=== PATIENT | female | born 1935 | race Asian ===

== ENCOUNTER 2023-07-26 23:37 | Inpatient (IN) | payer MEDICARE, MEDICAID ==
[2023-07-27 00:22] LABS: #Eosinphils 0.1 thou/uL (0.0-0.7); #Monocytes 0.7 thou/uL (0.11-0.59); #Neutrophils 4.2 thou/uL (1.40-6.50); %Basophils 0.5 % (0.0-1.0); %Eosinophils 1.1 % (0.0-10.0); %Monocytes 10.7 % (0.0-10.0); %Neutrophils 64.6 % (42.0-75.0); Hemoglobin 12.8 g/dL (12.0-16.0); Mean Corpuscular HGB CONC 33.7 g/dL (32.0-36.0); Mean Corpuscular Hemoglobin 32.9 pg (27.0-31.0); Mean Corpuscular Volume 97.7 fl (78.0-98.0); Mean Platelet Volume 9.3 fL (7.4-10.4); Platelet Count 207 10x3/uL (130-400); RBC Distribution Width 13.9 % (11.5-14.5); Red Blood Cell (RBC) Count 3.89 mill/uL (4.20-5.40); White Blood Cell (WBC) Count 6.4 10x3/uL (4.8-10.8)
[2023-07-27 00:54] LABS: Troponin I Less than 0.010 ng/mL (< 0.028)
[2023-07-27 01:31] LABS: ALT (SGPT) 20 U/L (8-55); AST (SGOT) 25 U/L (5-34); Albumin 4.1 g/dL (3.4-4.8); Alkaline Phosphatase 42 U/L (40-110); Anion Gap 15 mmol/L (10-20); BUN (Urea Nitrogen) 52 mg/dL (9.8-20.1); Bilirubin, Total 0.3 mg/dL (0.2-1.2); Calc. Creatinine Clearance 0 mL/min (70-130); Calcium 9.2 mg/dL (7.8-10.44); Carbon Dioxide 23 mmol/L (23-31); Chloride 98 mmol/L (98-107); Estimated GFR 64; Globulin 3.5 g/dL (2.4-3.5); Glucose 261 mg/dL (83-110); Potassium 5.2 mmol/L (3.5-5.1); Protein, Total 7.6 g/dL (5.8-8.1); Sodium 131 mmol/L (136-145)
[2023-07-27 01:54] LABS: Bacteria/HPF None Seen HPF (None Seen); Bilirubin Negative (Negative); Blood, Urine Negative (Negative); CAUTI Indications for Culture Dysuria,urgency,freq; Clarity Clear (Clear); Glucose, Urine (Dipstick) 300 mg/dL (Negative); Ketone, Urine Negative (Negative); Leukocyte 25 Leu/uL (Negative); Nitrite Negative (Negative); Protein, Urine (Dipstick) Negative (Neg-Trace); RBC/HPF None Seen HPF (0-3); Specific Gravity, Urine 1.011 (1.002-1.036); Squamous Epithelial None Seen HPF (0-3); Urobilinogen Normal mg/dL (Less than 2); WBC/HPF 0-3 HPF (0-3); pH, Urine 6.5 (5.0-9.0)
[2023-07-27 02:01] LABS: Urine Culture Reflex No No
[2023-07-27] MEDS ORDERED: fentaNYL 50 mcg/mL 1 mL Vial ONE (02:24)
[2023-07-27] MEDS ORDERED: Insulin Regular 300 UNITS/3 ML VIAL ONE (02:25)
[2023-07-27 02:43] LABS: Magnesium 1.8 mg/dL (1.6-2.6)
[2023-07-27 04:26] VITALS: BMI 17.6
[2023-07-27] MEDS ORDERED: Dextrose 5% in Water 1,000 ML IV PRN (09:19)
[2023-07-27] MEDS ORDERED: HumaLOG 300 UNITS/3 ML VIAL SC PRN (09:19)
[2023-07-27] MEDS ORDERED: Glucagon 1 MG/ML KIT IM PRN (09:19)
[2023-07-27] MEDS ORDERED: Dextrose 50% Abboject 50 ML SYRINGE SLOW IVP PRN (09:19)
[2023-07-27] MEDS ORDERED: Losartan 25 MG TAB PO SCH (09:30)
[2023-07-27] MEDS ORDERED: Losartan 25 MG TAB ONE (10:05)
[2023-07-27] MEDS: oxyCODONE 5 MG TAB PO PRN (10:10)
[2023-07-27] MEDS ORDERED: Iopamidol-370 76% 500 ML MDV (1 ML CHARGE) ONE (10:25)
[2023-07-27] MEDS ORDERED: HumaLOG 300 UNITS/3 ML VIAL ONE (12:02)
[2023-07-27] MEDS: HumaLOG 300 UNITS/3 ML VIAL SC PRN (13:03)
[2023-07-27] MEDS ORDERED: Acetaminophen 500 MG TAB ONE (13:50)
[2023-07-27] MEDS: Acetaminophen 500 MG TAB PO SCH ×2 (14:01→21:42)
[2023-07-27 14:38] LABS: Potassium 4.6 mmol/L (3.5-5.1)
[2023-07-27] MEDS ORDERED: Acetaminophen 325 MG TAB PO SCH (15:00)
[2023-07-27] MEDS ORDERED: Sodium Chloride 0.9% 1,000 ML IV SCH (17:00)
[2023-07-27] MEDS: Losartan 25 MG TAB PO SCH (21:34)
[2023-07-27] MEDS: Sotalol HCl 80 MG TAB PO SCH (21:40)
[2023-07-27] MEDS: Gabapentin 100 MG CAP PO SCH (21:44)
[2023-07-28] MEDS: Levothyroxine Sodium 88 MCG TAB PO SCH (05:45)
[2023-07-28 06:39] LABS: #Eosinphils 0.1 thou/uL (0.0-0.7); #Monocytes 0.8 thou/uL (0.11-0.59); #Neutrophils 4.7 thou/uL (1.40-6.50); %Basophils 0.4 % (0.0-1.0); %Eosinophils 1.6 % (0.0-10.0); %Lymphocytes 19.4 % (21.0-51.0); %Monocytes 11.3 % (0.0-10.0); %Neutrophils 66.7 % (42.0-75.0); Hemoglobin 13.3 g/dL (12.0-16.0); Mean Corpuscular HGB CONC 34.1 g/dL (32.0-36.0); Mean Corpuscular Hemoglobin 32.4 pg (27.0-31.0); Mean Corpuscular Volume 94.9 fl (78.0-98.0); Mean Platelet Volume 9.4 fL (7.4-10.4); Platelet Count 201 10x3/uL (130-400); RBC Distribution Width 13.7 % (11.5-14.5); Red Blood Cell (RBC) Count 4.11 mill/uL (4.20-5.40)
[2023-07-28 07:09] LABS: Anion Gap 14 mmol/L (10-20); BUN (Urea Nitrogen) 35 mg/dL (9.8-20.1); Calc. Creatinine Clearance 35 mL/min (70-130); Calcium 9.3 mg/dL (7.8-10.44); Carbon Dioxide 23 mmol/L (23-31); Chloride 100 mmol/L (98-107); Estimated GFR 74; Glucose 149 mg/dL (83-110); Potassium 3.9 mmol/L (3.5-5.1); Sodium 133 mmol/L (136-145)
[2023-07-28] MEDS: Sotalol HCl 80 MG TAB PO SCH ×2 (08:59→20:58)
[2023-07-28] MEDS: Digoxin 0.125 MG TAB PO SCH (08:59)
[2023-07-28] MEDS: Acetaminophen 500 MG TAB PO SCH ×3 (08:59→20:58)
[2023-07-28] MEDS: HumaLOG 300 UNITS/3 ML VIAL SC PRN ×2 (11:21→17:38)
[2023-07-28] MEDS: Lidocaine 4% Patch TD SCH (14:17)
[2023-07-28] MEDS: Losartan 25 MG TAB PO SCH (20:55)
[2023-07-28] MEDS: Docusate 100 MG CAP PO SCH (20:59)
[2023-07-28] MEDS: Gabapentin 100 MG CAP PO SCH (20:59)
[2023-07-29] MEDS: Transdermal Patch Removal TOP SCH (01:09)
[2023-07-29 05:47] LABS: #Eosinphils 0.1 thou/uL (0.0-0.7); #Monocytes 0.8 thou/uL (0.11-0.59); #Neutrophils 4.7 thou/uL (1.40-6.50); %Basophils 0.4 % (0.0-1.0); %Eosinophils 1.9 % (0.0-10.0); %Lymphocytes 18.3 % (21.0-51.0); %Monocytes 11.9 % (0.0-10.0); %Neutrophils 67.1 % (42.0-75.0); Hematocrit 41.3 % (36.0-47.0); Hemoglobin 13.7 g/dL (12.0-16.0); Mean Corpuscular HGB CONC 33.2 g/dL (32.0-36.0); Mean Corpuscular Volume 96.5 fl (78.0-98.0); Mean Platelet Volume 9.2 fL (7.4-10.4); Platelet Count 193 10x3/uL (130-400); RBC Distribution Width 13.6 % (11.5-14.5); Red Blood Cell (RBC) Count 4.28 mill/uL (4.20-5.40)
[2023-07-29 06:32] LABS: Anion Gap 14 mmol/L (10-20); BUN (Urea Nitrogen) 24 mg/dL (9.8-20.1); Calc. Creatinine Clearance 40 mL/min (70-130); Calcium 9.2 mg/dL (7.8-10.44); Carbon Dioxide 23 mmol/L (23-31); Chloride 101 mmol/L (98-107); Estimated GFR 83; Glucose 157 mg/dL (83-110); Potassium 3.7 mmol/L (3.5-5.1); Sodium 134 mmol/L (136-145)
[2023-07-29] MEDS: Levothyroxine Sodium 88 MCG TAB PO SCH (06:35)
[2023-07-29] MEDS ORDERED: Losartan 25 MG TAB PO SCH (09:00)
[2023-07-29] MEDS: oxyCODONE 5 MG TAB PO PRN ×2 (10:11→21:38)
[2023-07-29] MEDS: Digoxin 0.125 MG TAB PO SCH (10:13)
[2023-07-29] MEDS: Acetaminophen 500 MG TAB PO SCH ×3 (10:13→21:17)
[2023-07-29] MEDS: Losartan 25 MG TAB PO SCH ×2 (10:13→21:15)
[2023-07-29] MEDS: Sotalol HCl 80 MG TAB PO SCH ×2 (10:14→21:15)
[2023-07-29] MEDS: Lidocaine 4% Patch TD SCH (14:24)
[2023-07-29] MEDS: HumaLOG 300 UNITS/3 ML VIAL SC PRN (18:36)
[2023-07-29] MEDS: Gabapentin 100 MG CAP PO SCH (21:12)
[2023-07-29] MEDS: Docusate 100 MG CAP PO SCH (21:15)
[2023-07-30] MEDS: Transdermal Patch Removal TOP SCH (01:00)
[2023-07-30 05:09] LABS: Anion Gap 12 mmol/L (10-20); BUN (Urea Nitrogen) 41 mg/dL (9.8-20.1); Calc. Creatinine Clearance 35 mL/min (70-130); Calcium 8.8 mg/dL (7.8-10.44); Carbon Dioxide 21 mmol/L (23-31); Chloride 98 mmol/L (98-107); Estimated GFR 73; Glucose 185 mg/dL (83-110); Sodium 127 mmol/L (136-145)
[2023-07-30] MEDS: Levothyroxine Sodium 88 MCG TAB PO SCH (05:11)
[2023-07-30] MEDS ORDERED: Sodium Chloride 0.9% 1,000 ML IV SCH (08:15)
[2023-07-30] MEDS: Cholecalciferol 1,000 UNITS (25 MCG) TAB PO SCH (08:27)
[2023-07-30] MEDS: Digoxin 0.125 MG TAB PO SCH (08:29)
[2023-07-30] MEDS: Pioglitazone HCl 15 MG TAB PO SCH (08:30)
[2023-07-30] MEDS: Multivit, Therapeutic 1 TAB PO SCH (08:30)
[2023-07-30] MEDS: Losartan 25 MG TAB PO SCH ×2 (08:30→23:12)
[2023-07-30] MEDS: Sotalol HCl 80 MG TAB PO SCH ×2 (08:31→21:15)
[2023-07-30] MEDS: Acetaminophen 500 MG TAB PO PRN ×3 (08:31→21:14)
[2023-07-30] MEDS: oxyCODONE 5 MG TAB PO PRN ×3 (08:32→21:14)
[2023-07-30] MEDS ORDERED: Non-Formulary Item 1 EACH (Multivitamin/Iron/Folic Acid [Centrum Adults Tablet] 1 EACH Ta PO SCH (09:00)
[2023-07-30] MEDS ORDERED: Cholecalciferol 1,000 UNITS (25 MCG) TAB PO SCH (09:00)
[2023-07-30] MEDS ORDERED: oxyCODONE 5 MG TAB PO PRN (11:13)
[2023-07-30] MEDS: Lidocaine 4% Patch TD SCH (13:35)
[2023-07-30] MEDS: HumaLOG 300 UNITS/3 ML VIAL SC PRN (14:12)
[2023-07-30] MEDS: Docusate 100 MG CAP PO SCH (21:16)
[2023-07-30] MEDS: Ezetimibe 10 MG TAB PO SCH (21:16)
[2023-07-31] MEDS: Transdermal Patch Removal TOP SCH (01:32)
[2023-07-31] MEDS: Levothyroxine Sodium 88 MCG TAB PO SCH (06:31)
[2023-07-31 07:38] LABS: Anion Gap 10 mmol/L (10-20); BUN (Urea Nitrogen) 36 mg/dL (9.8-20.1); Calc. Creatinine Clearance 37 mL/min (70-130); Calcium 8.8 mg/dL (7.8-10.44); Carbon Dioxide 24 mmol/L (23-31); Chloride 101 mmol/L (98-107); Estimated GFR 79; Glucose 167 mg/dL (83-110); Potassium 3.9 mmol/L (3.5-5.1); Sodium 131 mmol/L (136-145)
[2023-07-31] MEDS ORDERED: Digoxin 0.125 MG TAB PO SCH (09:00)
[2023-07-31] MEDS: Pioglitazone HCl 15 MG TAB PO SCH (09:29)
[2023-07-31] MEDS: Multivit, Therapeutic 1 TAB PO SCH (09:30)
[2023-07-31] MEDS: Sotalol HCl 80 MG TAB PO SCH ×2 (09:30→17:51)
[2023-07-31] MEDS: Cholecalciferol 1,000 UNITS (25 MCG) TAB PO SCH (09:30)
[2023-07-31] MEDS: Losartan 25 MG TAB PO SCH ×2 (09:31→17:52)
[2023-07-31] MEDS: Acetaminophen 500 MG TAB PO PRN ×2 (09:37→17:51)
[2023-07-31] MEDS: oxyCODONE 5 MG TAB PO PRN (09:38)
[2023-07-31] MEDS: HumaLOG 300 UNITS/3 ML VIAL SC PRN (14:33)
[2023-07-31] MEDS: Lidocaine 4% Patch TD SCH (14:33)
[2023-07-31 15:55] VITALS: BP 113/54; TEMP 97.5
[2023-07-31] MEDS: Docusate 100 MG CAP PO SCH (17:52)
[2023-07-31] MEDS: Ezetimibe 10 MG TAB PO SCH (17:52)
== END 2023-07-31 18:43 | DRG 563 ==
LOC: ERS 23:37 → ERHOLD 07-27 03:39 → 2SW 07-27 21:17 → OBSVTOIN 07-28 15:58
PROVIDERS: ADMIT Student in an Organized Health Care Education/Training Program; ATTEND Nurse Practitioner Family
DX: S52.024A Nondisplaced fracture of olecranon process without intraarticular extension of right ulna, initial encounter for closed fracture (principal); I31.39 Other pericardial effusion (noninflammatory); E87.1 Hypo-osmolality and hyponatremia; S50.01XA Contusion of right elbow, initial encounter; Z66 Do not resuscitate; I25.10 Atherosclerotic heart disease of native coronary artery without angina pectoris; I25.2 Old myocardial infarction; E87.5 Hyperkalemia; I48.0 Paroxysmal atrial fibrillation; E78.5 Hyperlipidemia, unspecified; E11.40 Type 2 diabetes mellitus with diabetic neuropathy, unspecified; E03.9 Hypothyroidism, unspecified; M25.511 Pain in right shoulder; W18.30XA Fall on same level, unspecified, initial encounter; I10 Essential (primary) hypertension; Z96.652 Presence of left artificial knee joint; Z90.710 Acquired absence of both cervix and uterus; Z98.890 Other specified postprocedural states; Z98.49 Cataract extraction status, unspecified eye
CPT/HCPCS: 36415; 36416; 70450; 71045; 71275; 72125; 80048; 80053; 81001; 83735; 84484; 85025; 85379; 93005; 93306; 94760; 96374; G0378; J1815; J3010; J7050; Q9967